=== PATIENT | female | born 1965 | race Caucasian/White ===

== ENCOUNTER 2022-07-06 08:35 | Emergency (ER) | payer OTHER, SELFPAY ==
--- NOTE | 2022-07-06 08:37 | ED.URI ---
HPI - URI/Sore Throat General Chief Complaint: Upper Respiratory Infection Stated Complaint: headache, sinus pressure Time Seen by Provider: 07/06/22 08:37 Source: patient and RN notes reviewed Mode of arrival: ambulatory Limitations: no limitations History of Present Illness HPI Narrative: 57-year-old female presents with concern for right-sided headache, sinus pressure, ear pain, ear pressure that started on Sunday. She reports the right side of her face has become swollen. She reports she was told by an ENT after doing scopes that she had sinus polyp and chronic sinus infection approximate weeks ago, at that time she was placed on 2 rounds of antibiotic and steroids. She reports her symptoms kept her home from work today. She reports she has a right-sided headache, right-sided neck and shoulder discomfort as well. She denies neck stiffness, fever, thunderclap headache, difficulty swallowing, difficulty speaking. She denies facial warmth, tenderness, redness. MD elicited complaint: nasal congestion, sinus pain and other (Ear pain and right-sided facial swelling) Related Data Home Medications Medication Instructions Recorded Confirmed amlodipine 10 mg tablet 10 mg PO DAILY 07/06/22 07/06/22 carvedilol 6.25 mg tablet 6.25 mg PO DAILY 07/06/22 07/06/22 dextroamphetamine-amphetamine 20 20 mg PO DAILY 07/06/22 07/06/22 mg tablet levothyroxine 100 mcg tablet 100 mcg PO DAILY 07/06/22 07/06/22 lisinopril 20 mg tablet 20 mg PO DAILY 07/06/22 07/06/22 vortioxetine 20 mg tablet 20 mg PO DAILY 07/06/22 07/06/22 (Trintellix) Allergies Allergy/AdvReac Type Severity Reaction Status Date / Time No Known Allergies Allergy Unverified 07/06/22 08:40 Review of Systems Review of Systems: CONSTITUTIONAL: Reports malaise. Denies chills, sweats, or fever. EYES: Denies visual changes, redness, or discharge. Reports new bags under her eyes ENT: Reports rhinorrhea, congestion, sinus pain, otalgia. Denies sore throat. CARDIOVASCULAR: Denies chest pain, palpitations, or edema. RESPIRATORY: Denies cough. Denies dyspnea. GASTROINTESTINAL: Denies abdominal pain, nausea, vomiting, diarrhea SKIN: Denies rash or itching. MUSCULOSKELETAL: Denies myalgia. NEUROLOGIC: Reports headache. All systems reviewed & are unremarkable except as noted in HPI and below PMFSH Comments At time of signature, agree with nursing past medical, surgical, social and family history. There is no relevant family history pertinent to the presenting complaint Exam Narrative: GENERAL: Well-appearing, well-nourished, and in no acute distress. HEAD: Normocephalic EYES: PERRLA, conjunctivae and sclera clear, watery discharge bilaterally ENT: Nares clear, turbinates edematous, erythematous, excoriated, sinus tenderness. Mucous membranes moist. TM pearly landaverde with dull light reflex bilaterally; no tragal tenderness. Oropharynx not erythematous without lesions. Tonsils not enlarged and without exudate, no drooling, no hoarseness, no trismus, uvula midline. Right-sided superficial edema noted under the eye, cheek, nontender without erythema, induration, warmth, no areas of fluctuation noted NECK: Supple. No lymphadenopathy CHEST: Clear to auscultation, breath sounds equal. No wheezing, rhonchi, rales, or stridor. No respiratory distress, speaks in full sentences. HEART: Regular rate and rhythm. No murmur heard. SKIN: Warm, dry, no rash. NEURO: Alert and oriented x3. PSYCH: Normal mood and affect Course Course Emergency Course: Patient is aware of diagnosis, understands and agrees to treatment plan. Anticipatory guidance given. Patient agrees to follow-up as directed and is aware of reasons to seek care at the emergency department. Portions of this record may have been created with voice recognition software Level of Care: Express Care Visit Vital Signs Vital signs: Reviewed. MDM - URI/Sore Throat MDM Narrative Medical decision making narrative: Differential diag
[2022-07-06 08:48] VITALS: BP 126/73; PULSE 62; RESP 16; TEMP 36.3; O2SAT 98
[2022-07-06 08:52] VITALS: BP 126/73; PULSE 62; RESP 16; TEMP 36.3; O2SAT 98
== END 2022-07-06 09:12 | disposition home or self-care (01) ==
PROVIDERS: Emergency Provider Nurse Practitioner; PCP Internal Medicine
DX: J01.90 Acute sinusitis, unspecified (principal)
CPT/HCPCS: 99213; G0463

== ENCOUNTER 2023-02-16 08:50 | Emergency (ER) | payer OTHER, SELFPAY ==
[2023-02-16 09:06] VITALS: BP 132/79; PULSE 62; RESP 16; TEMP 36.8; O2SAT 99
[2023-02-16 09:08] VITALS: BP 132/79; PULSE 62; RESP 16; TEMP 36.8; O2SAT 99
--- NOTE | 2023-02-16 09:42 | ED.URI ---
HPI - URI/Sore Throat General Chief Complaint: Upper Respiratory Infection Stated Complaint: Sore Throat/Ears Irritation Time Seen by Provider: 02/16/23 09:40 History of Present Illness HPI Narrative: 57 y/o female presented for c/o sore throat mostly on the left, pain radiating to the left ear, and coughing up mucous for a few days. Endorses recent right sinus surgery and is concerned sinuses are 'building up' again, stating her only symptom was snoring and she has started to snore again. Denies sob, wheezing, n/v/d/f/c. Taking Claritin for symptoms. Denies sick contacts. Related Data Home Medications Medication Instructions Recorded Confirmed amlodipine 10 mg tablet 10 mg PO DAILY 07/06/22 02/16/23 carvedilol 6.25 mg tablet 6.25 mg PO DAILY 07/06/22 02/16/23 dextroamphetamine-amphetamine 20 20 mg PO DAILY 07/06/22 02/16/23 mg tablet levothyroxine 100 mcg tablet 100 mcg PO DAILY 07/06/22 02/16/23 lisinopril 20 mg tablet 20 mg PO DAILY 07/06/22 02/16/23 vortioxetine 20 mg tablet 20 mg PO DAILY 07/06/22 02/16/23 (Trintellix) Allergies Allergy/AdvReac Type Severity Reaction Status Date / Time No Known Allergies Allergy Verified 02/16/23 09:07 Review of Systems Review of Systems: CONSTITUTIONAL: Denies body aches, fever, chills, or sweats. EYES: Denies visual changes, redness, or discharge. ENT: Denies rhinorrhea, congestion, or otalgia. CARDIOVASCULAR: Denies chest pain, palpitations, or edema. RESPIRATORY: Denies dyspnea. GASTROINTESTINAL: Denies abdominal pain, nausea, vomiting, or diarrhea. SKIN: Denies rash, itching, or wounds. MUSCULOSKELETAL: Denies back pain, joint pain, or myalgia. NEUROLOGIC: Denies headache PMFSH Past Medical History Medical History (Updated 02/16/23 @ 10:02 by Theresa Benavidez APRN) Hypertension Surgical History Surgical History (Updated 02/16/23 @ 09:53 by Theresa Benavidez APRN) H/O sinus surgery Exam Narrative: GENERAL: well-appearing, no acute distress. EYES: conjunctivae clear ENT: Mucous membranes moist. TMs pearly landaverde with normal light reflex bilaterally; no tragal tenderness. Oropharynx erythematous without lesions or exudate. No drooling, no hoarseness, no trismus, uvula midline. No tripod positioning, hot potato voice, or soft palate swelling. NECK: Supple. No lymphadenopathy CHEST: Clear to auscultation, breath sounds equal. No respiratory distress, speaks in full sentences. HEART: Regular rate and rhythm. No murmur heard. SKIN: Warm, dry, no rash. NEURO: Alert and oriented x3. Course Course Emergency Course: Patient is aware of diagnosis, understands and agrees to treatment plan. Anticipatory guidance given. Patient agrees to follow-up as directed and is aware of reasons to seek care at the emergency department. Portions of this record may have been created with voice recognition software Level of Care: Express Care Visit Vital Signs Vital signs: Vital Signs Temperature 98.2 F 02/16/23 09:06 Pulse Rate 62 02/16/23 09:06 Respiratory Rate 16 02/16/23 09:06 Blood Pressure 132/79 02/16/23 09:06 Pulse Oximetry 99 02/16/23 09:06 Oxygen Delivery Room Air 02/16/23 09:06 Temperature 98.2 F 02/16/23 09:08 Pulse Rate 62 02/16/23 09:08 Respiratory Rate 16 02/16/23 09:08 Blood Pressure 132/79 02/16/23 09:08 Pulse Oximetry 99 02/16/23 09:08 Oxygen Delivery Room Air 02/16/23 09:08 MDM - URI/Sore Throat MDM Narrative Medical decision making narrative: strep result reviewed with pt. Advise supportive treatments. Patient is appropriate for outpatient treatment and follow-up. Differential Diagnosis Differential diagnosis: Likely upper respiratory infection, viral infection and pharyngitis Discharge Plan Discharge Clinical Impression: Pharyngitis Patient Disposition: Home, Self-Care Condition: Stable Instructions: Antibiotic Form, Pharyngitis (ED) Additional Instruction
== END 2023-02-16 10:04 | disposition home or self-care (01) ==
PROVIDERS: Emergency Provider Nurse Practitioner Family; PCP Internal Medicine
DX: J02.9 Acute pharyngitis, unspecified (principal); I10 Essential (primary) hypertension
CPT/HCPCS: 87081; 87880; 99213; G0463